=== PATIENT | female | born 1990 | race African-American/Black ===

== ENCOUNTER 2017-12-29 17:58 | Emergency (ER) | payer SELFPAY ==
[~2017-12-29] VITALS: Ht 165.1 cm; Wt 75.0 kg
[~2017-12-29 17:58] MED LIST: AMOX875T PO; IBUP800T23 PO
[2017-12-29 18:07] VITALS: BP 112/64; PULSE 62; RESP 15; TEMP 98.6; O2SAT 100
--- NOTE | 2017-12-29 21:01 | PD ---
HPI Chief Complaint: Project Intern Problem/Complaint Time Seen by Provider: 20:54 Travel History International Travel<30 days: No Contact w/Intl Traveler<30days: No Traveled to known affect area: No History of Present Illness HPI 27-year-old black female presents emergency department requesting evaluation of vaginal spotting. She states her last menstrual period was the second of this month. She denies any fever chills. No nausea vomiting. No abdominal pain or pelvic pain. No abnormal discharge other than spotting. She denies any urinary symptoms. She states that she would like to get it checked out. History Past Medical Histgory Medical History: Denies Significant Hx LMP: 12/06/17 Past Surgical History Surgical History: No Previous Surgery Social History Alcohol Use: No Tobacco Use: No Allergies-Medications (Allergen,Severity, Reaction): Coded Allergies: No Known Allergies (Unverified Adverse Reaction, Unknown, 12/29/17) Reported Meds & Prescriptions Reported Meds & Active Scripts Active No Active Prescriptions or Reported Medications Review of Systems General / Constitutional: No: Fever Eyes: No: Visual changes HENT: No: Headaches Cardiovascular: No: Chest Pain or Discomfort Respiratory: No: Shortness of Breath Gastrointestinal: No: Abdominal Pain Genitourinary: Positive: Vaginal Bleeding, No: Frequency, Dysuria, Hematuria Musculoskeletal: No: Pain Skin: No Rash Neurologic: No: Weakness Psychiatric: No: Depression Endocrine: No: Polydipsia Hematologic/Lymphatic: No: Easy Bruising Physical Exam Narrative GENERAL: Well-developed, well-nourished in no acute distress. Nontoxic appearing. HEAD: Normocephalic, atraumatic. EYES: Pupils equal round and reactive. Extraocular motions intact. No scleral icterus. No injection or drainage. ENT: TMs clear without erythema. The external auditory canals clear. Nose: clear . Posterior pharynx is pink and moist. No tonsillar edema or exudate. Uvula midline. Airway patent. NECK: Trachea midline.Supple, nontender, moves head freely. No central bony tenderness or spasm. CARDIOVASCULAR: Regular rate and rhythm without murmurs, gallops, or rubs. RESPIRATORY: Clear to auscultation. Breath sounds equal bilaterally. No wheezes , rales, or rhonchi. GASTROINTESTINAL: Abdomen soft, non-tender, nondistended. No hepato-splenomegaly , or palpable masses. No guarding. EXTREMITIES: No clubbing, cyanosis, or edema. No joint tenderness, effusion, or edema noted. BACK: Nontender without deformity or crepitance. No flank tenderness. Data Data Last Documented VS Vital Signs Date Time Temp Pulse Resp B/P (MAP) Pulse Ox O2 Delivery O2 Flow Rate FiO2 12/29/17 18:07 98.6 62 15 112/64 (80) 100 MDM Medical Screen Exam Complete: Yes Emergency Medical Condition: No Differential Diagnosis Differential diagnosis: , dysfunctional uterine bleeding, UTI Narrative Course A medical screening exam was performed: At the time of evaluation the presenting medical condition was determined not to be of an emergent nature. The patient was given the option of receiving additional care, but declined. Patient was given options for additional community resources from which to obtain care. The Patient Has Been advised to seek medical attention for their presenting complaint. The patient has been advised to return to the ER at any time if an emergent condition develops. Primary Impression: Encounter for medical screening examination Scripts No Active Prescriptions or Reported Meds Condition: Bill Field Dec 29, 2017 21:01
== END 2017-12-29 21:06 | disposition left against medical advice (07) ==
LOC: NEPD 17:58
DX: R39.89 Other symptoms and signs involving the genitourinary system (principal)
CPT/HCPCS: 99281